=== PATIENT | female | born 2000 | race Caucasian/White ===

== ENCOUNTER 2020-11-25 17:23 | Emergency (ER) | payer OTHER ==
[2020-11-25 17:29] VITALS: BP 144/71
[2020-11-25] MEDS ORDERED: AMOX/CLAV 875 MG/125 MG TABLET PO STA (17:42)
--- NOTE | 2020-11-25 17:43 | ED Physician Documentation ---
PD HPI HEENT - Stated complaint Stated Complaint: RT EAR/JAW PX - Chief complaint Chief Complaint: Heent - History obtained from History obtained from: Patient - Additional information Additional information: 2 days of right ear pain with a sensation of swelling and muffled hearing. Is associated with pain with opening and closing the jaw. No fevers. Review of Systems Constitutional: reports: Reviewed and negative Eyes: reports: Reviewed and negative Ears: reports: Reviewed and negative Nose: reports: Reviewed and negative PD PAST MEDICAL HISTORY - Past Medical History Past Medical History: No - Past Surgical History Past Surgical History: No - Present Medications Home Medications: Ambulatory Orders Medication Instructions Recorded Confirmed Amox/Clav 875/125 [Augmentin] 1 each PO Q12H #20 tablet 11/25/20 - Allergies Allergies/Adverse Reactions: Allergies Allergy/AdvReac Type Severity Reaction Status Date / Time No Known Drug Allergies Allergy Verified 11/25/20 17:30 - Social History Does the pt smoke?: No Smoking Status: Never smoker Does the pt drink ETOH?: No Does the pt have substance abuse?: No - Immunizations Immunizations are current?: Yes - POLST Patient has POLST: No PD ED PE NORMAL - Vitals Vital signs reviewed: Yes - General General: Alert and oriented X 3, No acute distress - HEENT HEENT: Other (Moderate right otitis media, no mastoid tenderness, no trismus, no obvious cavities.) - Neck Neck: Supple, no meningeal sign, No bony TTP - Neuro Neuro: Alert and oriented X 3, Normal speech Results - Vitals Vitals: Vital Signs - 24 hr 11/25/20 17:26 Temperature 36.4 C L Heart Rate 76 Respiratory 16 Rate Blood Pressure 144/71 H O2 Saturation 100 Oxygen O2 Source Room air Departure - Departure Disposition: 01 Home, Self Care Clinical Impression: ROM (right otitis media) Qualifiers: Otitis media type: suppurative Chronicity: acute Recurrence: non-recurrent S pontaneous tympanic membrane rupture: without spontaneous rupture Qualified Code(s): H66.001 - Acute suppurative otitis media without spontaneous rupture of ear drum, right ear Condition: Good Record reviewed to determine appropriate education?: Yes Instructions: ED Otitis Media Acute Adult Prescriptions: Amox/Clav 875/125 [Augmentin] 1 each PO Q12H #20 tablet Comments: Prescription sent electronically to [facility] in [place]. [place]. Return for new or worsening symptoms.
== END 2020-11-25 17:50 | disposition home or self-care (01) ==
LOC: ED 17:23
DX: H66.001 Acute suppurative otitis media without spontaneous rupture of ear drum, right ear (principal)
CPT/HCPCS: 99282; 99283; A9270

== ENCOUNTER 2020-11-26 21:21 | Emergency (ER) | payer OTHER ==
--- NOTE | 2020-11-26 21:49 | ED Physician Documentation ---
History of Present Illness - Stated complaint Stated Complaint: BLOOD LOSS/RECTAL BLEED - Chief complaint Chief Complaint: General - History obtained from History obtained from: Patient - Additonal information Additional information: 20-year-old woman, previously healthy presents with multiple complaints. She states that yesterday she was seen for an ear infection and given antibiotics but it is not improving, she is also having irregular periods and easy bruising over the past couple months, and has had intermittent rectal bleeding this week. She had small amount of bright red blood in toilet 1 week ago with brown stool, this stopped after a few days then she had another brown BM with small amount of bright red blood in toilet today. States she has been having hard stools. denies abd pain, n/v back pain. Review of Systems Ten Systems: 10 systems reviewed and negative Constitutional: denies: Fever, Chills GI: denies: Abdominal Pain, Nausea : reports: Irregular menses. denies: Dysuria Skin: reports: Other (ecchymosis) PD PAST MEDICAL HISTORY - Past Surgical History Past Surgical History: No - Present Medications Home Medications: Ambulatory Orders Medication Instructions Recorded Confirmed Amox/Clav 875/125 [Augmentin] 1 each PO Q12H #20 tablet 11/25/20 11/26/20 - Allergies Allergies/Adverse Reactions: Allergies Allergy/AdvReac Type Severity Reaction Status Date / Time No Known Drug Allergies Allergy Verified 11/25/20 17:30 - Social History Does the pt smoke?: No Smoking Status: Never smoker Does the pt drink ETOH?: No Does the pt have substance abuse?: No - Immunizations Immunizations are current?: Yes - POLST Patient has POLST: No PD ED PE NORMAL - Vitals Vital signs reviewed: Yes - General General: Alert and oriented X 3, No acute distress, Well developed/nourished - HEENT HEENT: Atraumatic, PERRL, EOMI - Rectal Rectal: Other (SMITA asif. no hemorrhoids. posterior anal fissure with small amount of bright red blood. brown stool on exam. ) - Extremities Extremities: Other (yellowing 3cm ecchymosis to R medial leg.) - Neuro Neuro: Alert and oriented X 3 - Psych Psych: Normal mood, Normal affect Results - Vitals Vitals: Vital Signs - 24 hr 11/26/20 21:25 Temperature 36.1 C L Heart Rate 76 Respiratory 16 Rate Blood Pressure 135/70 H O2 Saturation 99 Oxygen O2 Source Room air - Labs Labs: Laboratory Tests 11/26/20 11/26/20 22:41 22:41 WBC 9.9 RBC 4.70 Hgb 14.2 Hct 41.9 MCV 89.1 MCH 30.2 MCHC 33.9 RDW 12.0 Plt Count 310 MPV 9.5 Neut # (Auto) 6.1 Lymph # (Auto) 2.8 Nicholas # (Auto) 0.9 Eos # (Auto) 0.1 Baso # (Auto) 0.0 Absolute Nucleated RBC 0.00 Nucleated RBC % 0.0 Sodium 138 Potassium 3.9 Chloride 103 Carbon Dioxide 27 Anion Gap 8.0 BUN 11 Creatinine 0.8 Estimated GFR (MDRD) 90 Glucose 88 Calcium 9.4 Total Bilirubin 0.6 AST 20 ALT 18 Alkaline Phosphatase 71 Total Protein 7.8 Albumin 4.7 Globulin 3.1 Albumin/Globulin Ratio 1.5 Lipase 37 PD MEDICAL DECISION MAKING - ED course ED course: 20-year-old woman presents with anal fissure. Discussed symptomatic care with high-fiber diet and consideration of [id number] stool softeners and laxative as needed. Also with persistent ear pain after being diagnosed with ear infection yesterday. Advised her to continue her Augmentin and start taking acetic acid eardrops [id number]. For her irregular menses I am recommending OB follow-up. She requested screening blood work due to concerns about easy bruising and we will oblige. No evidence of anemia on exam. Return precautions given. Departure - Departure Disposition: 01 Home, Self Care Clinical Impression: Anal fissure Condition: Good Instructions: ED Otitis Externa Comments: You are seen in the emergency department for irregular menses, easy bruising, rectal bleeding, and ear pain. Please follow-up with [facility] for a routine checkup in regards to your menses. If you start to have heavy periods greater than 2 pads an hour soaking through then return to the emergency department. Your screening lab work was normal. Your rectal bleeding was caused by an anal fissure, which is a tear in the anus often caused by hard stools. You should try to get more fiber in your diet and avoid processed foods. You can start a stool softener like senna and docusate [id number]. The best long-term change is a healthy diet. For your ear pain, take acetic acid ear drops over the counter. Ask your ph armacist for "swimmers ear" ear drops. Return to the emergency department if you have any new or worsening symptoms or other concerns. Follow-up with [facility] for referral to [facility].
[2020-11-26 22:47] LABS: BASOPHILS % (AUTO) 0.3 %; EOSINOPHILS # (AUTO) 0.1 10^3/uL (0.0-0.7); EOSINOPHILS % (AUTO) 1.3 %; HCT - HEMATOCRIT 41.9 % (37.0-47.0); HGB - HEMOGLOBIN 14.2 g/dL (12.0-16.0); LYMPHOCYTES # (AUTO) 2.8 10^3/uL (1.5-3.5); LYMPHOCYTES % (AUTO) 28.2 %; MEAN CORPUSCULAR HEMOGLOBIN 30.2 pg (27.0-31.0); MEAN CORPUSCULAR HGB CONC 33.9 g/dL (32.0-36.0); MEAN CORPUSCULAR VOLUME 89.1 fL (81.0-99.0); MEAN PLATELET VOLUME 9.5 fL (7.9-10.8); MONOCYTES # (AUTO) 0.9 10^3/uL (0.0-1.0); MONOCYTES % (AUTO) 8.8 %; NEUTROPHILS # (AUTO) 6.1 10^3/uL (1.5-6.6); NEUTROPHILS % (AUTO) 61.1 %; PLT - PLATELET COUNT 310 10^3/uL (130-450); WHITE BLOOD COUNT 9.9 x10^3/uL (4.8-10.8)
[2020-11-26 23:12] LABS: ALBUMIN 4.7 g/dL (3.2-5.5); ALBUMIN/GLOBULIN RATIO 1.5 (1.0-2.2); BILIRUBIN,TOTAL 0.6 mg/dL (0.2-1.0); CALCIUM 9.4 mg/dL (8.5-10.3); CREATININE 0.8 mg/dL (0.4-1.0); POTASSIUM 3.9 mmol/L (3.5-5.0); TOTAL PROTEIN 7.8 g/dL (6.7-8.2)
[2020-11-26 23:36] VITALS: BP 128/70
== END 2020-11-26 23:36 | disposition home or self-care (01) ==
LOC: ED 21:21
DX: K60.2 Anal fissure, unspecified (principal)
CPT/HCPCS: 36415; 80053; 83690; 85025; 99283; 99284

== ENCOUNTER 2024-03-01 09:33 | Emergency (ER) | payer OTHER ==
[2024-03-01 09:51] VITALS: O2SAT 97
--- NOTE | 2024-03-01 10:11 | ED Physician Documentation ---
PD HPI ABD PAIN - Stated complaint Stated Complaint: D/N - Chief complaint Chief Complaint: Abd Pain - History obtained from History obtained from: Patient - Additional information Additional information: She woke up at 6 this morning and developed dizziness like the world was spinning and vomited once. There is no associated disequilibrium or trouble with gait. No focal neurologic symptoms. No headache. No diarrhea. PD PAST MEDICAL HISTORY - Past Surgical History Past Surgical History: No HEENT: Tonsil/Adenoidectomy - Present Medications Home Medications: Ambulatory Orders Medication Instructions Recorded Confirmed Naproxen 500 mg PO BID PRN 03/16/23 03/16/23 Metoclopramide [Reglan] 10 mg PO Q6H PRN #20 tablet 03/01/24 - Allergies Allergies/Adverse Reactions: Allergies Allergy/AdvReac Type Severity Reaction Status Date / Time No Known Drug Allergies Allergy Verified 03/01/24 09:43 - Social History Does the pt smoke?: No Smoking Status: Never smoker Does the pt drink ETOH?: No Does the pt have substance abuse?: No - Immunizations Immunizations are current?: Yes - POLST Patient has POLST: No PD ED PE NORMAL - Vitals Vital signs reviewed: Yes - General General: Alert and oriented X 3, No acute distress - HEENT HEENT: PERRL, EOMI, Other (No nystagmus) - Abdomen Abdomen: Normal bowel sounds, Soft, Non tender - Neuro Neuro: Alert and oriented X 3, hydrologist 2-12 intact, Other (Normal gait. Normal finger-nose and [id number] testing. No truncal ataxia in sitting position.) Eye Opening: Spontaneous Motor: Obeys Commands Verbal: Oriented GCS Score: 15 - Psych Psych: Normal mood, Normal affect Results - Vitals Vitals: Vital Signs - 24 hr 03/01/24 09:36 Temperature 36.8 C Heart Rate 90 Respiratory 18 Rate Blood Pressure 130/71 O2 Saturation 97 Oxygen O2 Source Oxymask - Labs Labs: Laboratory Tests 03/01/24 03/01/24 10:06 10:06 WBC 10.1 RBC 5.02 Hgb 14.9 Hct 45.2 MCV 90.0 MCH 29.7 MCHC 33.0 RDW 12.2 Plt Count 278 MPV 9.5 Neut # (Auto) 8.0 H Lymph # (Auto) 1.7 [place] # (Auto) 0.3 Eos # (Auto) 0.0 Baso # (Auto) 0.0 Absolute Nucleated RBC 0.00 Nucleated RBC % 0.0 Sodium 142 Potassium 4.0 Chloride 108 Carbon Dioxide 24 Anion Gap 10.0 BUN 11 Creatinine 0.8 Estimated GFR (MDRD) 87 L Glucose 86 Calcium 9.8 Total Bilirubin 0.4 AST 14 ALT 15 Alkaline Phosphatase 50 Total Protein 8.0 Albumin 4.8 Globulin 3.2 Albumin/Globulin Ratio 1.5 Lipase 18 PD Medical Decision Making - ED course ED course: She presents with vertigo and nausea. No headache, focal neurologic symptoms or findings. Reassuring posterior testing with regard to lack of ataxia, negative Romberg, no truncal ataxia etc. Symptoms resolved after a dose of IV metoclopramide. CBC and CMP were normal/unremarkable. Departure - Departure Disposition: Home, Self Care Clinical Impression: Dizziness Vomiting Qualifiers: Vomiting type: unspecified Nausea presence: with nausea Qualified Code(s): R11.2 - Nausea with vomiting, unspecified Condition: Good Record reviewed to determine appropriate education?: Yes Instructions: ED Vertigo Unspecified, ED Nausea Vomiting Prescriptions: Metoclopramide [Reglan] 10 mg PO Q6H PRN #20 tablet PRN Reason: nausea or headache Comments: I sent your prescriptions electronically to the [facility] in [place]. Return if you worsen or if symptoms last another 24 hours. [place]. Forms: PCP List, Activity restrictions
[2024-03-01 10:16] LABS: BASOPHILS % (AUTO) 0.2 %; HCT - HEMATOCRIT 45.2 % (37.0-47.0); HGB - HEMOGLOBIN 14.9 g/dL (12.0-16.0); LYMPHOCYTES # (AUTO) 1.7 10^3/uL (1.5-3.5); LYMPHOCYTES % (AUTO) 16.8 %; MEAN CORPUSCULAR HEMOGLOBIN 29.7 pg (27.0-31.0); MEAN PLATELET VOLUME 9.5 fL (7.9-10.8); MONOCYTES # (AUTO) 0.3 10^3/uL (0.0-1.0); MONOCYTES % (AUTO) 3.4 %; NEUTROPHILS % (AUTO) 79.2 %; PLT - PLATELET COUNT 278 10^3/uL (130-450); RED BLOOD COUNT 5.02 10^6/uL (4.20-5.40); RED CELL DISTRIBUTION WIDTH 12.2 % (12.0-15.0); WHITE BLOOD COUNT 10.1 x10^3/uL (4.8-10.8)
[2024-03-01] MEDS: METOCLOPRAMIDE 10 MG/2 ML VIAL IVP STA (10:22)
[2024-03-01 10:32] LABS: ALBUMIN 4.8 g/dL (3.2-5.5); ALBUMIN/GLOBULIN RATIO 1.5 (1.0-2.2); BILIRUBIN,TOTAL 0.4 mg/dL (0.2-1.0); CALCIUM 9.8 mg/dL (8.5-10.3); CREATININE 0.8 mg/dL (0.6-1.3)
[2024-03-01 11:43] VITALS: BP 115/76
== END 2024-03-01 11:42 | disposition home or self-care (01) ==
LOC: ED 09:33
DX: R42 Dizziness and giddiness (principal); R11.2 Nausea with vomiting, unspecified
CPT/HCPCS: 36415; 80053; 83690; 85025; 99283; J2765